=== PATIENT | female | born 1955 | race Caucasian/White ===

== ENCOUNTER 2021-08-07 10:48 | Outpatient (CLI) | payer MEDICARE, MEDICAID, SELFPAY ==
--- NOTE | 2021-08-07 11:25 | RAD_ITS ---
STUDY CHEST SERIES--PA AND LATERAL VIEWS OF 1132 HOURS ON 08/07/2021 REASON FOR EXAM: 66-year-old female with dyspnea--evaluate for acute bronchitis TECHNIQUE: A standard 2 view chest x-ray series was performed per protocol. COMPARISON: None. FINDINGS: Mild demineralization. Mild thoracolumbar dextroscoliosis. No cardiomegaly or heart failure. No pulmonary infiltrates, atelectasis, effusion, or pulmonary mass lesions. RAD/Chest PA and Lateral IMPRESSION: 1. No active cardiopulmonary disease. 2. Mild demineralization. 3. No pneumonia, pneumonitis or bronchitis. Electronically Signed: Clifford Valles MD at 19:22 EDT ,
[2021-08-07 12:03] LABS: Absolute Lymphocyte Count 2.19 X10^3/uL (0.83-4.51); Absolute Neutrophil Count 3.2 X10^3/uL (2.0-7.7); Basophil# 0.08 X10^3/uL; Basophil% 1.2 % (0-1); Eosinophil# 0.47 X10^3/uL; Eosinophils% 7.3 % (0-5); Hematocrit 37.7 % (37-47); Hemoglobin 13.3 g/dL (12.0-15.0); Lymphocyte # 2.19 X10^3/ul (0.83-4.51); Mean Corp Hgb Conc 35.3 g/dL (32-36); Mean Corpuscular Hgb 33.7 pg (27.0-32.0); Mean Corpuscular Volume 95.4 fL (81-99); Mean Platelet Vol. 10.4 fl (6.2-12.0); Monocyte# 0.53 X10^3/uL; Monocyte% 8.2 % (0-10); NRBC Flagged by Analyzer 0 % (0-5); Neutrophil # 3.17 X10^3/uL (2.7-7.7); Neutrophil % 49.1 % (47-70); Platelet Count 193 K/mm3 (150-450); RBC Distribution Width CV 13.4 % (11.6-14.6); RBC Distribution Width SD 46.2 fl (35.1-43.9); Red Blood Count 3.95 M/mm3 (4.2-5.4); White Blood Count 6.5 K/mm3 (4.4-11.0)
[2021-08-07 12:44] LABS: Vitamin D,25 Hydroxy 10.1 ng/mL
[2021-08-07 13:01] LABS: ALB/GLOB Ratio 1.2 RATIO (0.9-2.4); AST(SGOT) 11 U/L (15-37); Alanine Aminotransfer ALT/SGPT 16 U/L (13-56); Albumin, Serum 3.9 g/dL (3.2-5.0); Alkaline Phosphatase 43 U/L (45-117); Anion Gap 6 (5-15); BUN 14 mg/dL (7-18); BUN/Creat Ratio 20.3 RATIO (10-20); Calcium,Total 9.4 mg/dL (8.5-10.1); Chloride 110 mmol/L (98-107); Cholesterol 204 mg/dL (200); Creatinine, Serum 0.69 mg/dL (0.55-1.02); EST Glomerular Filtration Rate 91 mL/min (>60); Est Glom Filt Rate - Afr Amer 109 mL/min (>60); Globulin 3.2 g/dL (2.2-4.2); Glucose 93 mg/dL (74-106); High Density Lipoprotein 53 mg/dL; Potassium 3.8 mmol/L (3.5-5.1); Protein, Total 7.1 g/dL (6.4-8.2); Sodium Level 139 mmol/L (136-145); Thyroid Stim Hormone (TSH) 3.58 uIU/mL (0.358-3.74); Triglycerides 80 mg/dL; Very Low Density Lipoprotein 16 mg/dL (5-40)
== END 2021-08-07 23:59 | disposition home or self-care (01) ==
LOC: LAB 10:54
PROVIDERS: Referring Provider Nurse Practitioner Adult Health; Visit Provider Nurse Practitioner Adult Health
DX: L28.2 Other prurigo (principal); J20.9 Acute bronchitis, unspecified; E55.9 Vitamin D deficiency, unspecified; R06.00 Dyspnea, unspecified; I10 Essential (primary) hypertension; R79.9 Abnormal finding of blood chemistry, unspecified
CPT/HCPCS: 36415; 71046; 80053; 80061; 82306; 83036; 84443; 85025

== ENCOUNTER → 2021-09-04 | Outpatient (CLI) | payer MEDICARE, MEDICAID, SELFPAY ==
--- NOTE | 2021-09-05 08:38 | PFT ---
INTRODUCTION: The patient is a 66-year-old female that presents for pulmonary function studies secondary to a diagnosis of wheezing. Respiratory therapy reported good patient effort. Bronchodilators were used during testing. INTERPRETATION: Forced expiration spirometry demonstrates no evidence of a large airways obstructive ventilatory defect. There was no significant response to aerosolized bronchodilators. Body plethysmography was performed and reveals lung volumes to be within normal limits. Diffusing capacity by single breath CO is also within normal limits. IMPRESSION: Grossly normal pulmonary function studies.
== END | disposition home or self-care (01) ==
LOC: PSN 10:28
PROVIDERS: Referring Provider Nurse Practitioner Adult Health; Visit Provider Nurse Practitioner Adult Health
DX: R06.2 Wheezing (principal); R06.00 Dyspnea, unspecified
CPT/HCPCS: 94060; 94726; 94729

== ENCOUNTER → 2021-10-09 | Outpatient (CLI) | payer MEDICARE, MEDICAID, SELFPAY ==
--- NOTE | 2021-10-09 09:25 | BD_ITS ---
STUDY: DUAL ENERGY X-RAY ABSORPTIOMETRY / DXA REASON FOR EXAM: Female, 66 years old. M85.89. The patient is postmenopausal. TECHNIQUE: Bone Mineral Density (BMD) measurements of lumbar spine and bilateral hips were obtained. COMPARISON: None. FINDINGS: Lumbar Spine (L1-L4): g/cm2 (1.074) / T-score (0.2) / Z-score (2.1) Findings are suggestive of normal bone density with a low fracture risk. Left Femur Total: g/cm2 (0.836) / T-score (-0.9) / Z-score (0.4) Left Femoral Neck: g/cm2 (0.699) / T-score (-1.4) / Z-score (0.2) Right Femur Total: g/cm2 (0.878) / T-score (-0.5) / Z-score (0.7) Right Femoral Neck: g/cm2 (0.722) / T-score (-1.1) / Z-score (0.4) BD/Dexa Bone Density Study IMPRESSION: The patient is considered osteopenic as outlined below according to World Andrew Organization (WHO) criteria with a low fracture risk. Reference Information: The T-score is the number of standard deviations above or below the standard which is normal for young adults at their peak bone mineral density. The World Health Organization (WHO) interprets the T-scores as follows: Above -1 Normal bone density Between -1 and -2.5 Osteopenia Equal to / or below -2.5 Osteoporosis As a practical clinical guideline, osteopenia may be graded as follows: Mild -1 through -1.5 Moderate -1.6 through -2.0 Severe -2.1 through -2.4 The Z-score is the number of standard deviations above or below age-matched controls. A Z-score of less than -1.5 would be considered abnormal. References: 1. NIH Osteoporosis and Related Bone Diseases www osteo.org 2. International Society for Clinical Densitometry www iscd.org 3. National Osteoporosis Foundation www nof.org Electronically Signed: Michael Ortiz MD at 12:55 EDT ,
== END | disposition home or self-care (01) ==
PROVIDERS: Visit Provider Nurse Practitioner Adult Health
DX: M89.9 Disorder of bone, unspecified (principal); M85.89 Other specified disorders of bone density and structure, multiple sites
CPT/HCPCS: 77080

== ENCOUNTER → 2021-11-13 | Outpatient (CLI) | payer MEDICARE, MEDICAID, SELFPAY ==
[2021-11-13 13:04] LABS: Absolute Lymphocyte Count 2.19 X10^3/uL (0.83-4.51); Absolute Neutrophil Count 4.8 X10^3/uL (2.0-7.7); Basophil# 0.11 X10^3/uL; Basophil% 1.4 % (0-1); Eosinophil# 0.36 X10^3/uL; Eosinophils% 4.5 % (0-5); Hematocrit 38.6 % (37-47); Hemoglobin 13.4 g/dL (12.0-15.0); Lymphocyte # 2.19 X10^3/ul (0.83-4.51); Lymphocyte % 27.1 % (19-41); Mean Corp Hgb Conc 34.7 g/dL (32-36); Mean Corpuscular Hgb 31.3 pg (27.0-32.0); Mean Corpuscular Volume 90.2 fL (81-99); Mean Platelet Vol. 10.1 fl (6.2-12.0); Monocyte# 0.61 X10^3/uL; Monocyte% 7.6 % (0-10); NRBC Flagged by Analyzer 0 % (0-5); Neutrophil # 4.77 X10^3/uL (2.7-7.7); Platelet Count 294 K/mm3 (150-450); RBC Distribution Width CV 12.8 % (11.6-14.6); Red Blood Count 4.28 M/mm3 (4.2-5.4); White Blood Count 8.1 K/mm3 (4.4-11.0)
[2021-11-19 05:07] LABS: Alternaria tenuis <0.10 kU/L (Class 0); Ash, White <0.10 kU/L (Class 0); Aspergillus fumigatus <0.10 kU/L (Class 0); Bermuda Grass <0.10 kU/L (Class 0); Birch <0.10 kU/L (Class 0); Black Walnut <0.10 kU/L (Class 0); Cat Hair / Dander,Stand 0.18 kU/L (Class 0/I); Cedar, Mountain <0.10 kU/L (Class 0); Cladosporium herbarum <0.10 kU/L (Class 0); Cockroach, American <0.10 kU/L (Class 0); Cottonwood <0.10 kU/L (Class 0); D farinae Mite <0.10 kU/L (Class 0); D pteronyssinus <0.10 kU/L (Class 0); Dog Epithelia <0.10 kU/L (Class 0); Elm, American White <0.10 kU/L (Class 0); Immunoglobulin E 184 IU/mL (6-495); Maple/Box Elder <0.10 kU/L (Class 0); Mulberry, White <0.10 kU/L (Class 0); Oak, White <0.10 kU/L (Class 0); Pecan <0.10 kU/L (Class 0); Penicillium Notatum <0.10 kU/L (Class 0); Pigweed, Rough <0.10 kU/L (Class 0); Ragweed, Short/Common <0.10 kU/L (Class 0); Russian Thistle <0.10 kU/L (Class 0); Sheep Sorrel <0.10 kU/L (Class 0); Sycamore, American <0.10 kU/L (Class 0); Timothy Grass <0.10 kU/L (Class 0)
[2021-11-19 10:45] LABS: Mouse Urine <0.10 kU/L (Class 0)
[2021-11-20 08:48] LABS: Immunoglobulin E 209 IU/mL (6-495)
== END | disposition home or self-care (01) ==
PROVIDERS: Visit Provider Internal Medicine Critical Care Medicine
DX: R05.3 Chronic cough (principal)
CPT/HCPCS: 36415; 82785; 85025; 86003

== ENCOUNTER → 2021-11-27 | Outpatient (CLI) | payer MEDICARE, MEDICAID, SELFPAY ==
--- NOTE | 2021-11-27 14:40 | CT_ITS ---
STUDY: LOW DOSE CT LUNG CANCER SCREENING REASON FOR EXAM: Female, 66 years old. Tobacco Dependency. Patient smokes half a pack per day for 20 RADIATION DOSAGE (If Supplied By Facility): CTDIvol = ( 1.59 ) mGy, DLP = ( 52.22 ) mGycm TECHNIQUE: No contrast was administered. Low dose technique was utilized (average mAS-38 and kVp 120). 1.25 mm axial source images with a slice interval of 1.25-mm were reconstructed in lung windows. 2.5 mm axial source images with a slice interval of 2.5-mm were reconstructed in lung windows. 5.0 mm axial source images with a slice interval of 5.0-mm were reconstructed in soft tissue windows. COMPARISON: None. NODULES: No suspicious nodules are seen. Emphysema: Mild degree of emphysematous changes. Endobronchial lesion: None Aorta: Unremarkable CORONARY ARTERIES: Coronary artery calcification is not seen. Heart: Unremarkable Pulmonary artery: Unremarkable. Mediastinal nodes: Unremarkable. Other chest and abdominal findings: CT/Low Dose CT Lung Screening IMPRESSION: Lung-RADS category 2 - Continue annual screening with LDCT in 12 months. IMPORTANT NOTES FOR USE: ACR Lung-RADS Version 1.1 Assessment Categories Release Date: 2018 Category: Coded 0-4 bases on nodule(s) with highest degree of suspicion. Negative screen is defined as categories 1 and 2; a positive screen is defined as categories 3 and 4. Category 3 and 4A nodules that are unchanged on interval CT should be coded as category 2, and individuals returned to screening in 12 months. Category 4X: Category 3 or 4 nodules with additional imaging findings that increase the suspicion of lung cancer, such as spiculation, GGN that doubles in size in 1 year, enlarged lymph notes, etc. Category Modifiers: S (significant finding unrelated to lung cancer) Electronically Signed: Michael Ortiz MD at 15:30 EDT ,
== END | disposition home or self-care (01) ==
LOC: CT 14:39
PROVIDERS: Referring Provider Internal Medicine Critical Care Medicine; Visit Provider Internal Medicine Critical Care Medicine
DX: F17.210 Nicotine dependence, cigarettes, uncomplicated (principal)
CPT/HCPCS: 71271

== ENCOUNTER → 2022-01-14 | Outpatient (CLI) | payer MEDICARE, SELFPAY ==
[2022-01-14] MEDS: Methacholine Chloride 18 ml neb kit INHALATION (07:18)
--- NOTE | 2022-01-14 10:04 | BRONCHALL_ITS ---
Bronchoprovocation Challenge Bronchoprovocation Challenge Bronchoprovocation Challenge: BRONCHOPROVOCATION STUDY INTERPRETATION Brief HPI: Patient is a 66 year old female, currently under the care of Dr. Mann, who presents to [facility] for a bronchoprovocation study secondary to diagnosis of chronic cough. Respiratory therapist reports good effort and reproducible results. Interpretation: Initial spirometry showed no large airways obstructive ventilatory defect. The patient was then given increasingly concentrated doses of methacholine in a stepwise/standardized fashion, using a modified ATS protocol. The patient had a significant reduction in FEV1 by 21% and a calculated PD20 of 1.78. Impression: Positive bronchoprovocation study in a range consistent with increased bronchial reactivity
== END | disposition home or self-care (01) ==
PROVIDERS: Referring Provider Internal Medicine Critical Care Medicine; Visit Provider Internal Medicine Critical Care Medicine
DX: R05.3 Chronic cough (principal)
CPT/HCPCS: 94070; 95070

== ENCOUNTER → 2022-01-15 | Outpatient (CLI) | payer MEDICARE, MEDICAID, SELFPAY ==
[2022-01-15 10:26] LABS: Absolute Lymphocyte Count 2.25 X10^3/uL (0.83-4.51); Absolute Neutrophil Count 3.6 X10^3/uL (2.0-7.7); Basophil# 0.12 X10^3/uL; Basophil% 1.7 % (0-1); Eosinophil# 0.51 X10^3/uL; Eosinophils% 7.3 % (0-5); Hematocrit 37.9 % (37-47); Hemoglobin 13.1 g/dL (12.0-15.0); Lymphocyte # 2.25 X10^3/ul (0.83-4.51); Lymphocyte % 32.1 % (19-41); Mean Corp Hgb Conc 34.6 g/dL (32-36); Mean Corpuscular Hgb 31.7 pg (27.0-32.0); Mean Corpuscular Volume 91.8 fL (81-99); Mean Platelet Vol. 9.8 fl (6.2-12.0); Monocyte# 0.55 X10^3/uL; Monocyte% 7.9 % (0-10); NRBC Flagged by Analyzer 0 % (0-5); Neutrophil # 3.55 X10^3/uL (2.7-7.7); Neutrophil % 50.7 % (47-70); Platelet Count 265 K/mm3 (150-450); RBC Distribution Width CV 13.1 % (11.6-14.6); RBC Distribution Width SD 43.8 fl (35.1-43.9); Red Blood Count 4.13 M/mm3 (4.2-5.4)
[2022-01-15 11:00] LABS: Vitamin D,25 Hydroxy 18.2 ng/mL
== END | disposition home or self-care (01) ==
LOC: LAB 10:07
DX: E55.9 Vitamin D deficiency, unspecified (principal)
CPT/HCPCS: 36415; 82306; 85025

== ENCOUNTER → 2022-06-30 | Outpatient (CLI) | payer MEDICARE, MEDICAID, SELFPAY ==
[2022-06-30 10:00] LABS: Hematocrit 38.8 % (37-47); Mean Corp Hgb Conc 33.5 g/dL (32-36); Mean Corpuscular Volume 92.4 fL (81-99); Mean Platelet Vol. 10.2 fl (6.2-12.0); Platelet Count 311 K/mm3 (150-450); RBC Distribution Width CV 12.9 % (11.6-14.6); RBC Distribution Width SD 43.4 fl (35.1-43.9); White Blood Count 8.5 K/mm3 (4.4-11.0)
[2022-06-30 10:32] LABS: ALB/GLOB Ratio 1.2 RATIO (0.9-2.4); AST(SGOT) 13 U/L (15-37); Alanine Aminotransfer ALT/SGPT 21 U/L (13-56); Albumin, Serum 4.1 g/dL (3.2-5.0); Alkaline Phosphatase 46 U/L (45-117); Anion Gap 5 (5-15); BUN 11 mg/dL (7-18); BUN/Creat Ratio 14.2 RATIO (10-20); Calcium,Total 9.5 mg/dL (8.5-10.1); Chloride 108 mmol/L (98-107); Creatinine, Serum 0.78 mg/dL (0.55-1.02); EST Glomerular Filtration Rate 79 mL/min (>60); Est Glom Filt Rate - Afr Amer 96 mL/min (>60); Globulin 3.3 g/dL (2.2-4.2); Glucose 109 mg/dL (74-106); Potassium 4.1 mmol/L (3.5-5.1); Protein, Total 7.4 g/dL (6.4-8.2); Sodium Level 140 mmol/L (136-145); Thyroid Stim Hormone (TSH) 4.02 uIU/mL (0.358-3.74)
[2022-07-01 09:14] LABS: T4 Free Direct 1.03 ng/dL (0.76-1.46)
== END | disposition home or self-care (01) ==
LOC: LAB 09:36
DX: I10 Essential (primary) hypertension (principal)
CPT/HCPCS: 36415; 80053; 84439; 84443; 85027

== ENCOUNTER → 2023-02-23 | Outpatient (CLI) | payer MEDICARE, MEDICAID, SELFPAY | END | disposition home or self-care (01) | LOC: LABSPEC 12:36 | PROVIDERS: Referring Provider Surgery; Visit Provider Surgery | DX: R19.7 Diarrhea, unspecified (principal) | CPT/HCPCS: 82274; 83630; 87506 ==

== ENCOUNTER 2023-03-01 11:14 | Outpatient (CLI) | payer MEDICARE, MEDICAID, SELFPAY | END 2023-03-01 23:59 | disposition home or self-care (01) | LOC: LABSPEC 11:16 | PROVIDERS: Referring Provider Surgery; Visit Provider Surgery | DX: Z00.00 Encounter for general adult medical examination without abnormal findings (principal) | CPT/HCPCS: 87177; 87209 ==

== ENCOUNTER 2023-03-15 06:13 | Day surgery (SDC) | payer MEDICARE, MEDICAID, SELFPAY ==
[2023-03-15] MEDS: Lactated Ringers 1,000 ML 15 ML IV (06:45)
[2023-03-15 06:56] VITALS: BP 153/74; PULSE 76; RESP 16; TEMP 37.3; O2SAT 98; BMI 29.4
--- NOTE | 2023-03-15 07:13 | PCM.HP.BLA ---
History and Physical Date of Admission: 03/15/23 Date of Service: 02/22/23 MR#: [id number] Acct: [id number] Name: OKSANA CALLAHAN Rep #: [id number] : 1955 Provider: Dr. Addie Solomon MD Age/Sex: 68/F Location: [facility] Status: Signed Intake Vital Signs 06/29/2306:52 02/22/2310:07 Height 5 ft 2 in 5 ft 2 in Weight: 153 lb 163 lb BMI 28.0 29.8 BP 145/79 H 133/82 H Blood Pressure Location Lt brachial Rt brachial Position Sitting Sitting Respiration 18 17 Pulse 80 86 Pulse Source Monitor Monitor Temp 97.6 F L 97.2 F L Temp Source Temporal Pulse Oximetry (%) 97 98 Oxygen Delivery Method room air room air Intake Visit Reasons: COLONOSCOPY FOR LOOSE STOOLS Chief Complaint: colonoscopy for loose stools Is patient in pain?: Yes Allergies acetaminophen [From Vicodin] Allergy (Unknown, Verified 02/22/23 10:09) unknownhydrocodone [From Vicodin] Allergy (Unknown, Verified 02/22/23 10:09) unknownprednisone Allergy (Unknown, Verified 02/22/23 10:09) GI UpsetAnesthetics - Amide Type - Select A Allergy (Verified 02/22/23 10:09) VomitingAnesthetics - Magalis Type- Parabens Allergy (Verified 02/22/23 10:09) Vomiting Medications naproxen sodium 550 mg tablet 550 mg PO Q12H PRN 11/11/21 [History Confirmed 02/22/23] amlodipine 5 mg tablet 5 mg PO DAILY 11/13/21 [History Confirmed 02/22/23] calcium carbonate 600 mg-vitamin D3 5 mcg (200 unit) tablet 1 tab PO BID 11/13/21 [History Confirmed 02/22/23] cetirizine 10 mg capsule (All Day Allergy (cetirizine)) 10 mg PO DAILY #30 caps 11/13/21 [Rx Confirmed 02/22/23] albuterol sulfate 90 mcg/actuation aerosol inhaler 2 puff inhalation Q4H PRN shortness of breath or wheezing #8.5 grams 06/29/22 [Rx Confirmed 02/22/23] budesonide-formoterol HFA 160 mcg-4.5 mcg/actuation aerosol inhaler (Symbicort) 2 puff inhalation BID #10.2 grams 06/29/22 [Rx Confirmed 02/22/23] hydrochlorothiazide 12.5 mg capsule 12.5 mg PO DAILY 02/22/23 [History Confirmed 02/22/23] PFSH Medical History (Updated 02/23/23 @ 12:[address] Addie Solomon MD) Diarrhea FH: Crohn's disease Hypertension Surgical History History of cholecystectomy History of partial hysterectomy Family History Father , due to kidney disease Kidney diseaseMother , due to lung cancer Lymphoma Leukemia Lung cancerSister Crohn's diseaseSister , d/t heart attack Myocardial infarction Social History (Updated 02/22/23 @ 10:07 by Laurence Caraballo) Smoking Status: Current every day smoker tobacco type: cigarettes Electronic Cigarette Use: not used second hand exposure: Yes alcohol intake: never substance use type: marijuana HPI HPI HPI: Six 8-year-old female presents due to loose stools for about a year. Patient states she may initially have formed and then turned to diarrhea during the same visit to the bathroom. Patient states that she does have a history of bladder infection was on antibiotics all last year currently off. Patient states she has diarrhea daily denies any blood denies any nausea or vomiting. Patient was on Protonix 40 mg p.o. daily but did run out does take [id number] omeprazole occasionally but does plan to see her PCP for another prescription of the Protonix as she does have the reflux symptoms occasionally. Patient states she did she may occasionally have some crampy left lower quadrant pain that can be stabbing but states the episodes have only happened twice last one about 4 to 5 days ago but only last for about a couple minutes when it occurred. Patient never had previous EGD. Patient Nuys any family history of colon cancer however patient's sister similar age age currently-- has had Crohn's diagnosed years ago. ROS General General: Yes fatigue; No weight change, appetite, colon cancer or breast cancer HEENT HEENT: No difficulty swallowing, eye injury, eye surgery, swollen glands or hoarseness Endo Endocrine: No thyroid disease, diabetes mellitus, thyroid cancer, Hair loss, heat intolerance or cold intolerance Skin Skin: No rash or changing moles Musc Musculoskeletal: Yes back problems and arthritis; No rheumatoid arthritis, gout or joint pain Cardio Cardiovascular: Yes high blood pressure; No murmur, pacemaker, heart disease, atrial fibrillation, heart attack, heart stent, palpitations, shortness of breat with exertion or chest pain Psych Psychiatric: No depression, anxiety or hearing voices Resp Respiratory: Yes shortness of breath, No sleep apnea, No cough, No COPD, Yes asthma, No emphysema and No wheezing Gastro Gastrointestinal: Yes abdominal pain, No nausea or vomiting, Yes diarrhea, Yes constipation, No blood in stool, No acid reflux, No hemorrhoids, No ulcers, No gallbladder problem and No black,tarry stools Justus Hematologic: No blood thinners, No blood disorders, No bleeding, No anemia and No blood clots Neuro Neurologic: No numbness and No tingling Exam Const General: cooperative, healthy appearing, comfortable and no acute distress HENMT Head: normocephalic and atraumatic Neck Neck: supple Resp Effort & Inspection: normal respiratory effort Cardio Rate: regular rate GI Inspection: non-distended Palpation: soft, no hernias and nontender Skin General: no rashes or lesions noted Neuro General: CN's II-XI intact bilaterally Extrem General: normal to inspection Psych Mental Status: mental status grossly normal Attitude: cooperative Assessment and Plan Assessment and Plan (1) Diarrhea: Status: Acute (2) FH: Crohn's disease: Status: Acute Comment: sister Orders: Orders CDIFF (PCR) 02/22/23 R19.7 - Diarrhea, unspecified Ova and Parasites 8623 02/22/23 R19.7 - Diarrhea, unspecified Stool Occult Blood iFOB 02/22/23 R19.7 - Diarrhea, unspecified ENTERIC PATHOGEN PANEL STOOL 02/22/23 R19.7 - Diarrhea, unspecified Stool Lactoferrin/WBC 02/22/23 R19.7 - Diarrhea, unspecified Colonoscopy Today Plan We will plan to get stool studies and also complete colonoscopy. I have discussed the above with the patient. I have offered the patient colonoscopy for evaluation. I have explained the risks/benefits of the procedure and described the procedure. I have discussed the risks with the patient, including but not limited to: infection, bleeding, perforation of the GI tract requiring emergency surgery, inability to complete the procedure, injury to any internal organs, complications of anesthesia, etc. - the patient understands and agrees to proceed. I have answered all the patient's questions to the patient's satisfaction and the patient has no further questions. The patient has been given instructions for the colon cleansing preparation. 1 day of clears, MiraLAX Dulcolax split prep. Addie Solomon M.D. Pager: [phone] [facility] [address] [place] [address], [facility], [address] [place] [address] Office: [phone] Coding Level of Care Code Off vis,new,level 3 Diagnoses Diarrhea R19.7 FH: Crohn's disease Z83.79 02/23/23 1223 <Electronically signed by Addie Solomon MD> Date Addie Solomon MD
--- NOTE | 2023-03-15 07:30 | COLBX_PTH ---
PATIENT: OKSANA CALLAHAN LOC: EN U#:[id number] AGE/SX: 68/F ROOM: RE03/15/[address]: Dr. Addie Solomon MD : 1955 BED: DIS: 03/15/2023 SPEC #: [id number] RECD: 03/15/23 11:05 STATUS: GITA CARLOS #: [id number] MARCO: 03/15/23 07:[address]: Addie Solomon DEPT: SURGICAL PATHOLOGY RECD BY: Aster Villafana ENTERED: 03/15/23 12:05 SP TYPE: COLON BX OTHR DR: Alexa [facility] Tissues: A - COLON BIOPSY B - COLON BIOPSY C - Rectum, NOS Procedures: Surgery Specimen Level IV HEADER OPERATION: Colonoscopy with biopsy PRE-OP DIAGNOSIS: Diarrhea, family history of Crohn's disease TISSUE SUBMITTED: A - Descending colon polyp biopsy, B - Random colon biopsy, C - Rectal polyp biopsy MICROSCOPIC DIAGNOSIS A. Descending colon polyp, biopsy: Fragments of tubular adenoma. B. Colon, random biopsy: Fragments of colonic mucosa, no pathologic diagnosis. C. Rectal polyp, biopsy: Fragments of hyperplastic polyp. STEFANIA:primo 03/16/2023 MICROSCOPIC DESCRIPTION Slides are reviewed. GROSS DESCRIPTION A - Received in fixative is one container labeled with the patient's name and designated descending colon polyp biopsy. The specimen consists of two irregular fragments of light fuentes soft tissue that in aggregate measure 0.4 x 0.3 x 0.1 cm. The specimen is totally submitted in one cassette. B - Received in fixative is one container labeled with the patient's name and designated random colon biopsy. The specimen consists of two irregular fragments of light fuentes soft tissue that in aggregate measure 0.8 x 0.4 x 0.1 cm. The specimen is totally submitted in one cassette. C - Received in fixative is one container labeled with the patient's name and designated rectal polyp biopsy. The specimen consists of two irregular fragments of light fuentes soft tissue that in aggregate measure 0.6 x 0.3 x 0.1 cm. The specimen is totally submitted in one cassette. / STEFANIA:primo 03/15/2023 TC:1 CPT: 60445 x3
[2023-03-15 08:05] VITALS: BP 153/74; BP 171/94; PULSE 77; RESP 18; TEMP 36.8; O2SAT 98
--- NOTE | 2023-03-15 08:06 | OP.CCLET_ITS ---
03/15/2023 Alexa Lyons [facility] Re : [facility] This procedure was performed on Wednesday, March 15, 2023. My impressions and recommendations are as follows: Impressions : - Hemorrhoids found on perianal exam. - Non-bleeding internal hemorrhoids. - Three 3 to 5 mm polyps in the rectum and in the ascending colon, removed with a cold biopsy forceps. Resected and retrieved. - The examination was otherwise normal. - Two random biopsies were obtained in the sigmoid colon and in the descending colon. Recommendations : - Discharge patient to home. - Resume previous diet. - Continue present medications. - Await pathology results. - Repeat colonoscopy in 5 years for surveillance based on pathology results. My findings are described in the full procedure note, which is enclosed. If I can be of further assistance, please feel free to contact me at Doctor phone number(s): , Work: . Sincerely, MD Addie Gambino MD 03/15/2023 8:05:38 AM This report has been signed electronically.
--- NOTE | 2023-03-15 08:06 | OP.COLON_ITS ---
Patient Name: Florina Stewart Procedure Date: 03/15/2023 7:11 AM Date of : 1955 Age: 68 Procedure: Colonoscopy Indications: Clinically significant diarrhea of unexplained origin Providers: Addie Solomon MD Medicines: Monitored Anesthesia Care Patient Profile: This is a 68 year old female. Last Colonoscopy: none. The patient's first colonoscopy is today. Complications: No immediate complications. Procedure: Pre-Anesthesia Assessment: - Prior to the procedure, a History and Physical was performed, and patient medications and allergies were reviewed. The patient's tolerance of previous anesthesia was also reviewed. The risks and benefits of the procedure and the sedation options and risks were discussed with the patient. All questions were answered, and informed consent was obtained. Prior Anticoagulants: The patient has taken no anticoagulant or antiplatelet agents. ASA Grade Assessment: Per anesthesia. After reviewing the risks and benefits, the patient was deemed in satisfactory condition to undergo the procedure. After I obtained informed consent, the scope was passed under direct vision. Throughout the procedure, the patient's blood pressure, pulse, and oxygen saturations were monitored continuously. The Colonoscope was introduced through the anus and advanced to the cecum, identified by appendiceal orifice and ileocecal valve. The colonoscopy was performed without difficulty. The patient tolerated the procedure well. The quality of the bowel preparation was good. Scope In: 7:31:43 AM Scope Withdrawal Time 0 hours 18 minutes 59 seconds Scope Out: 7:59:15 AM Total Procedure Duration Time 0 hours 27 minutes 32 seconds Findings: Hemorrhoids were found on perianal exam. Non-bleeding internal hemorrhoids were found. The hemorrhoids were Grade I (internal hemorrhoids that do not prolapse). Three sessile polyps were found in the rectum and ascending colon. The polyps were 3 to 5 mm in size. These polyps were removed with a cold biopsy forceps. Resection and retrieval were complete. Two random biopsies were obtained with cold forceps for histology in the sigmoid colon and in the descending colon. The exam was otherwise without abnormality. Impression: - Hemorrhoids found on perianal exam. - Non-bleeding internal hemorrhoids. - Three 3 to 5 mm polyps in the rectum and in the ascending colon, removed with a cold biopsy forceps. Resected and retrieved. - The examination was otherwise normal. - Two random biopsies were obtained in the sigmoid colon and in the descending colon. Recommendation: - Discharge patient to home. - Resume previous diet. - Continue present medications. - Await pathology results. - Repeat colonoscopy in 5 years for surveillance based on pathology results. Procedure Code(s): --- Professional --- 47012, PT, Colonoscopy, flexible; with biopsy, single or multiple Diagnosis Code(s): --- Professional --- K64.0, First degree hemorrhoids D12.8, Benign neoplasm of rectum D12.2, Benign neoplasm of ascending colon R19.7, Diarrhea, unspecified CPT copyright 2021 [employer]. All rights reserved. The codes documented in this report are preliminary and upon physician coder review may be revised to meet current compliance requirements. MD Addie Gambino MD 03/15/2023 8:05:38 AM This report has been signed electronically. Number of Addenda: 0 Note Initiated On: 03/15/2023 7:11 AM
[2023-03-15 08:10] VITALS: BP 153/74; BP 168/75; PULSE 76; RESP 18; O2SAT 100
[2023-03-15 08:15] VITALS: BP 153/74; BP 155/81; PULSE 74; RESP 18; O2SAT 100
[2023-03-15 08:21] VITALS: BP 153/74; BP 155/80; PULSE 75; RESP 18; TEMP 37.6; O2SAT 100
[2023-03-15 08:37] VITALS: BP 153/74
--- NOTE | 2023-03-15 08:38 | SUR.PHASEII ---
PATIENT IS FEELING LIGHT HEADED AND NAUSEOUS. SHE HAD ZOFRAN IN OR. SHE TOOK A SIP OF SPRITE SO FAR. I TOLD HER TO JUST TAKE HER TIME BEFORE SHE GETS UP. ALSO TRY TO EAT SOMETHING IF POSSIBLE. CALL OUT IF SHE IS IS CONTINUING TO FEEL LIGHT HEADED AND I WOULD CHECK ON HER IN 20 MINUTES IF SHE DOESN'T CALL OUT.
== END 2023-03-15 09:04 | disposition home or self-care (01) ==
LOC: EN 06:14 → AC 06:16
PROVIDERS: Visit Provider Surgery
PROC: 0DJD8ZZ Inspection of Lower Intestinal Tract, Via Natural or Artificial Opening Endoscopic (ICD-10-PCS; CPT 45378; principal; 2023-03-15 07:25)
DX: D12.4 Benign neoplasm of descending colon (principal); K21.9 Gastro-esophageal reflux disease without esophagitis; F17.210 Nicotine dependence, cigarettes, uncomplicated; K64.0 First degree hemorrhoids; K62.1 Rectal polyp; I10 Essential (primary) hypertension; Z90.49 Acquired absence of other specified parts of digestive tract; K64.4 Residual hemorrhoidal skin tags; Z79.899 Other long term (current) drug therapy; J45.909 Unspecified asthma, uncomplicated; Z83.79 Family history of other diseases of the digestive system
CPT/HCPCS: 45380; 88305; J7120; J2405

== ENCOUNTER → 2023-03-29 | Outpatient (CLI) | payer MEDICARE, MEDICAID, SELFPAY ==
--- NOTE | 2023-03-29 07:46 | CT_ITS ---
STUDY: LOW DOSE CT LUNG CANCER SCREENING REASON FOR EXAM: Female, 68 years old. Tobacco Dependency. Patient smokes 1 pack per day for 20 years. RADIATION DOSAGE (If Supplied By Facility): CTDIvol = ( 2.01 ) mGy, DLP = ( 60.67 ) mGycm TECHNIQUE: No contrast was administered. Low dose technique was utilized (average mAS-38 and kVp 120). 1.25 mm axial source images with a slice interval of 1.25-mm were reconstructed in lung windows. 2.5 mm axial source images with a slice interval of 2.5-mm were reconstructed in lung windows. 5.0 mm axial source images with a slice interval of 5.0-mm were reconstructed in soft tissue windows. COMPARISON: Comparison is made with prior study of November 27, 2021. NODULES: No suspicious nodules are seen. Emphysema: Mild emphysematous changes. Endobronchial lesion: None Aorta: Unremarkable CORONARY ARTERIES: Coronary artery calcification is not seen. Heart: Unremarkable Pulmonary artery: Unremarkable Mediastinal nodes: Unremarkable Other chest and abdominal findings: CT/Low Dose CT Lung Screening IMPRESSION: Lung-RADS category 2 - Continue annual screening with LDCT in 12 months. IMPORTANT NOTES FOR USE: ACR Lung-RADS Version 1.1 Assessment Categories Release Date: 2018 Category: Coded 0-4 bases on nodule(s) with highest degree of suspicion. Negative screen is defined as categories 1 and 2; a positive screen is defined as categories 3 and 4. Category 3 and 4A nodules that are unchanged on interval CT should be coded as category 2, and individuals returned to screening in 12 months. Category 4X: Category 3 or 4 nodules with additional imaging findings that increase the suspicion of lung cancer, such as spiculation, GGN that doubles in size in 1 year, enlarged lymph notes, etc. Category Modifiers: S (significant finding unrelated to lung cancer) Electronically Signed: Michael Ortiz MD at 13:43 EST ,
== END | disposition home or self-care (01) ==
LOC: CT 07:46
PROVIDERS: Referring Provider Internal Medicine Critical Care Medicine; Visit Provider Internal Medicine Critical Care Medicine
DX: F17.210 Nicotine dependence, cigarettes, uncomplicated (principal)
CPT/HCPCS: 71271

== ENCOUNTER → 2023-06-09 | Outpatient (CLI) | payer MEDICARE, MEDICAID, SELFPAY ==
--- NOTE | 2023-06-09 11:53 | US_ITS ---
PROCEDURE: RENAL ULTRASOUND - COMPLETE REASON FOR EXAM: Female, 68 years old. UTI TECHNIQUE: Ultrasound evaluation of the bilateral kidneys was performed with real-time ultrasonography and static grayscale imaging. COMPARISON: None. FINDINGS: RIGHT KIDNEY: Normal location of the right kidney which is normal in size. The right kidney measures 10.8 x 5.8 x 4.6 cm. There is a normal cortex of the right kidney. The renal cortex measures 1.5 cm. There is no right renal mass or cyst. There are no right renal calculi. There is no right hydronephrosis. DISTAL RIGHT URETER: There is non-visualization of the distal right ureter. There is no demonstrated right ureterovesical junction calculus. There is a visualized right ureteral jet. LEFT KIDNEY: Normal location of the left kidney which is normal in size. The left kidney measures 11.3 x 5.4 x 5.1 cm. There is a normal cortex of the left kidney. The renal cortex measures 1.5 cm. There is no left renal mass or cyst. There are no left renal calculi. There is no left hydronephrosis. DISTAL LEFT URETER: There is non-visualization of the distal left ureter. There is no demonstrated left ureterovesical junction calculus. There is a visualized left ureteral jet. BLADDER: The distended urinary bladder has a volume of 57 ml. There is a normal wall thickness of the distended urinary bladder. There is no demonstrated mass within the urinary bladder. There is no demonstrated bladder calculi. US/Kidney and Bladder IMPRESSION: Unremarkable renal ultrasound. Electronically Signed: Tyson Meek MD at 13:39 EST ,
== END | disposition home or self-care (01) ==
LOC: US 11:50
PROVIDERS: Visit Provider Urology
DX: N39.0 Urinary tract infection, site not specified (principal)
CPT/HCPCS: 76770